=== PATIENT | female | born 1980 | race Caucasian/White ===

== ENCOUNTER 2022-03-06 15:27 | Emergency (ER) | payer BC, OTHER ==
[2022-03-06] MEDS ORDERED: EPINEPHrine 1 MG/ML SDV SUBCUT ONE (15:33)
[2022-03-06] MEDS ORDERED: methylPREDNISolone Sodium Succinate 125 MG/2 ML SDV IVPUSH ONE (15:33)
[2022-03-06] MEDS ORDERED: diphenhydrAMINE 50 MG/ML SDV IVPUSH ONE (15:33)
[2022-03-06] MEDS ORDERED: Famotidine 20 MG/2 ML SDV IVPUSH ONE (15:33)
[2022-03-06 15:36] VITALS: BP 114/72; PULSE 110
[2022-03-06] MEDS ORDERED: Sodium Chloride 0.9% 10 ML Syringe FLUSH PRN (15:38)
== END 2022-03-06 17:45 | disposition home or self-care (01) ==
LOC: JP.ED 15:27
DX: T63.441A Toxic effect of venom of bees, accidental (unintentional), initial encounter (principal); L50.9 Urticaria, unspecified; R22.0 Localized swelling, mass and lump, head; Z91.030 Bee allergy status
CPT/HCPCS: 96372; 96374; 96375; 99283; J0171; J1200; J2930; J3490